=== PATIENT | female | born 1975 | race Caucasian/White ===

== ENCOUNTER 2018-12-28 19:13 | Observation (INO) | payer OTHER ==
[~2018-12-28] VITALS: Ht 160 cm; Wt 99.6 kg
[2018-12-28 20:38] VITALS: Ht 160 cm; Wt 99.6 kg
[2018-12-28 20:57] VITALS: BP 151/74; PULSE 77; RESP 18
[2018-12-28] MEDS ORDERED: DOCUSATE SODIUM 100 MG CAP PO PRN (21:30)
[2018-12-28] MEDS ORDERED: ONDANSETRON 4 MG TAB PO PRN (21:30)
[2018-12-28] MEDS ORDERED: NACL 0.9% 3 ML SYG IV SCH (21:30)
[2018-12-28] MEDS: CEFAZOLIN 1 GM/50 ML (PMX) 50 ML IVPB SCH (23:23)
[2018-12-28] MEDS: DEXTROSE 5%-0.45% NACL 1,000 ML IV SCH (23:23)
[2018-12-28] MEDS: FAMOTIDINE 20 MG TAB PO SCH (23:27)
[2018-12-28] MEDS: HEPARIN 5,000 UNIT/1 ML VIAL SC SCH (23:33)
[2018-12-29] VITALS (13 sets, daily range): BP systolic 126–161; BP diastolic 75–94; PULSE 87–99; RESP 15–24
[2018-12-29] MEDS: NICOTINE (14 MG/24 HR) PATCH TRANSDERM SCH ×2 (00:30→09:54)
[2018-12-29] MEDS: KETOROLAC 15 MG INJ IV PRN ×3 (05:04→20:31)
[2018-12-29] MEDS: CEFAZOLIN 1 GM/50 ML (PMX) 50 ML IVPB SCH (06:07)
[2018-12-29] MEDS: HEPARIN 5,000 UNIT/1 ML VIAL SC SCH (06:10)
[2018-12-29] MEDS: FAMOTIDINE 20 MG TAB PO SCH ×2 (09:52→20:31)
[2018-12-29] MEDS: DEXTROSE 5%-0.45% NACL 1,000 ML IV SCH ×2 (11:44→18:26)
--- NOTE | 2018-12-29 12:01 | PDOCDIS ---
Discharge Instructions CONDITION [id number] Patient Condition: [id number] Good HOME CARE INSTRUCTIONS: [id number] Diet Instructions: [id number] FOLLOW UP/APPOINTMENTS Follow-up Plan pcp [address] Carpenter 1 week SANDRA PÉREZ MD Dec 29, 2018 12:01
[2018-12-29] MEDS ORDERED: LIDOCAINE 1% (MPF) 30 ML INJ INJ ONE (12:30)
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
[2018-12-29] MEDS ORDERED: CEFAZOLIN 1 GM INJ IV ONE (13:30)
[2018-12-29] MEDS: CEFAZOLIN 2 GM/50 ML (PMX) 50 ML IVPB SCH ×2 (14:23→21:00)
--- NOTE | 2018-12-29 15:39 | PREAC ---
Date/Time of Note Date/Time of Note DATE: 12/29/18 TIME: 15:37 Anesthesia Eval and Record Evaluation Time Pre-Procedure Interview DATE: 12/29/18 TIME: 15:37 Age 43 Sex female NPO: 8 hrs Preoperative diagnosis left thumb open dislocation Planned procedure reduction and I&D Past Medical History Past Medical History: Includes Cardio: HTN Musculoskeletal: Other (chronic back pain disorder ) Psych: Anxiety Surgery & Anesthesia Issues No known issue Meds Anticoagulation: No Beta Ayde within 24 hr: No Reason Beta Ayde not given: Pt. not on B-Ayde No Active Prescriptions or Reported Meds Current Medications Dextrose/Sodium Chloride 1,000 ml @ 75 mls/hr [id number] IV Last administered on 12/28/18at 23:23; Admin Dose 75 MLS/HR; Start 12/28/18 at 21:15 IV Flush (NS 3 ml) 3 ml PER PROTOCOL IV ; Start 12/28/18 at 21:30 Ondansetron HCl (Zofran Tab) 4 mg Q6H PRN PO NAUSEA/VOMITING; Start 12/28/18 at 21:30 Acetaminophen (Tylenol Tab) 650 mg Q6H PRN PO .PAIN 1-3 OR TEMP; Start 12/28/18 at 21:30 Docusate Sodium (Colace) 100 mg Q12H PRN PO .CONSTIPATION; Start 12/28/18 at 21:30 Famotidine (Pepcid) 20 mg Q12 PO Last administered on 12/29/18at 09:52; Admin Dose 20 MG; Start 12/28/18 at 21:30 Ketorolac Tromethamine (Toradol) 15 mg Q6H PRN IV PAIN Last administered on 12/29/18at 13:37; Admin Dose 15 MG; Start 12/28/18 at 22:00; Stop 12/31/18 at 21:59 Nicotine (Nicoderm 14 Mg/ 24hr) 1 patch DAILY TRANSDERM Last administered on 12/29/18at 09:54; Admin Dose 1 PATCH; Start 12/29/18 at 00:30 Heparin Sodium (Porcine) (Heparin (5000 Units/1ml)) 5,000 unit BID SC ; Start 12/30/18 at 08:00 Cefazolin Sodium/ Dextrose 50 ml @ 100 mls/hr Q8 IVPB Last administered on 12/29/18at 14:23; Admin Dose 100 MLS/HR; Start 12/29/18 at 14:00 Meds reviewed: Yes Allergies Coded Allergies: No Known Allergy (Unverified , 12/28/18) DENIES ANY ALLERGY Allergies Reviewed: Yes Labs/Studies Labs Reviewed: Reviewed by anesthesiologist Result Diagram: 12/29/18 0438 12/29/18 0438 Laboratory Tests 12/29/18 04:38 test: Negative Pre-procedure Exam Last vitals Vital Signs Date Temp Pulse Resp B/P (MAP) Pulse Ox O2 O2 Flow FiO2 Time Delivery Rate 12/29/18 99.3 99 18 147/84 93 Room Air 03:22 (105) Airway: Adequate mouth opening, Adequate thyromental dist Mallampati: Mallampati III Teeth: Normal Lung: Normal Heart: Normal ASA Physical Status ASA physical status: 3 Emergency: None Pre-operative Attestations Prior to commencing anesthesia and surgery, the patient was re-evaluated, there was verification of: *The patient's identity *The results of appropriate recent lab work and preoperative vital signs *The above evaluation not changing prior to induction *Anesthetic plan, risk benefits, alternative and complications discussed with patient/family; questions answered; patient/family understands, accepts and wishes to proceed. CIRO KILGORE DO Dec 29, 2018 15:39
[2018-12-29] MEDS ORDERED: MIDAZOLAM 1 MG/ML 2 ML INJ ONE (15:57)
[2018-12-29] MEDS ORDERED: FENTAnyl 50 MCG/ML VIAL ONE (15:57)
[2018-12-29] MEDS ORDERED: ROPIVACAINE 0.5 % 30 ML VIAL ONE (15:57)
[2018-12-29] MEDS ORDERED: PROPOFOL 200 MG INJ ONE (15:57)
[2018-12-29] MEDS ORDERED: ONDANSETRON 4 MG INJ ONE (15:57)
[2018-12-29] MEDS ORDERED: LIDOCAINE 1% (MDV) 20 ML INJ ONE (15:57)
[2018-12-29] MEDS ORDERED: ETOMIDATE 20 MG INJ ONE (15:57)
[2018-12-29] MEDS ORDERED: ONDANSETRON 4 MG INJ IV PRN (16:00)
[2018-12-29] MEDS ORDERED: hydrALAzine 20 MG INJ IV PRN (16:00)
[2018-12-29] MEDS ORDERED: HYDROmorphONE 1 MG/5 ML IV SYRINGE IV PRN ×3 (16:00)
[2018-12-29] MEDS ORDERED: LABETALOL HCL 20MG INJ IV PRN (16:00)
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
[2018-12-30 00:05] VITALS: BP 121/76; PULSE 95; RESP 16
[2018-12-30] MEDS: ACETAMINOPHEN 325 MG TAB PO PRN ×3 (00:48→20:55)
[2018-12-30] MEDS: KETOROLAC 15 MG INJ IV PRN ×3 (02:48→16:41)
[2018-12-30] MEDS: CEFAZOLIN 2 GM/50 ML (PMX) 50 ML IVPB SCH ×3 (05:21→20:59)
[2018-12-30 07:50] VITALS: BP 128/72; PULSE 88; RESP 18
[2018-12-30] MEDS ORDERED: HEPARIN 5,000 UNIT/1 ML VIAL SC SCH (08:00)
[2018-12-30] MEDS: FAMOTIDINE 20 MG TAB PO SCH ×2 (08:29→20:56)
[2018-12-30] MEDS: NICOTINE (14 MG/24 HR) PATCH TRANSDERM SCH (08:31)
[2018-12-30] MEDS: HEPARIN 5,000 UNIT/1 ML VIAL SC SCH ×2 (08:38→20:58)
[2018-12-30] MEDS ORDERED: HYDR-4011 PO (09:12)
[2018-12-30] MEDS ORDERED: CEPH500C PO (09:12)
[2018-12-30] MEDS ORDERED: LACTULOSE 30ML CUP PO ONE (09:30)
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
--- NOTE | 2018-12-30 13:04 | PN ---
Date/Time of Note Date/Time of Note DATE: 12/30/18 TIME: 13:01 Assessment/Plan Lines/Catheters IV Catheter Type (from Nrsg): Peripheral IV Romero in Place (from Nrsg): No Assessment/Plan Assessment/Plan POD#1 s/p I&D and open reduction left thumb IP dislocation The hand is still significantly swollen. I recommend we observe her one more day. She will keep the hand elevated and move the fingers. Her dressing was re- wrapped. She will continue on IV Ancef q8h for the cellulitis. Subjective 24 Hr Interval Summary Complaining of pain in the left hand. Exam/Review of Systems Vital Signs Vitals Vital Signs Date Temp Pulse Resp B/P (MAP) Pulse Ox O2 O2 Flow FiO2 Time Delivery Rate 12/30/18 98.2 88 18 128/72 98 Room Air 07:50 (90) Intake and Output 12/29/18 12/29/18 12/30/18 1515:00 23:00 07:00 IntakeIntake Total 1330 ml 725 ml OutputOutput Total 5 ml BalanceBalance 1325 ml 725 ml Exam Free Text/Dictation Left hand is still significantly swollen. She is tender to palpation over the dorsal aspect of the hand where it is swollen along the 3rd and 4th MP joints. Compartments are soft. There is less erythema along the palmar aspect of the thumb. Sutures are in place. She can minimally flex and extend the IP joint. Sensation intact to light touch in all fingertips. Results Result Diagram: 12/29/18 0438 12/29/18 0438 WINNIE SKY MD Dec 30, 2018 13:04
[2018-12-30] MEDS: DEXTROSE 5%-0.45% NACL 1,000 ML IV SCH (14:18)
[2018-12-30 15:00] VITALS: BP 131/76; PULSE 82; RESP 19
[2018-12-30 19:45] VITALS: BP 150/87; PULSE 85; RESP 18
[2018-12-31 02:00] VITALS: BP 170/87; PULSE 86; RESP 18
[2018-12-31] MEDS: DEXTROSE 5%-0.45% NACL 1,000 ML IV SCH (02:35)
[2018-12-31] MEDS: CEFAZOLIN 2 GM/50 ML (PMX) 50 ML IVPB SCH ×2 (05:07→13:17)
[2018-12-31 07:21] VITALS: BP 141/84; PULSE 86; RESP 14
[2018-12-31] MEDS: FAMOTIDINE 20 MG TAB PO SCH (08:00)
[2018-12-31] MEDS: NICOTINE (14 MG/24 HR) PATCH TRANSDERM SCH (08:01)
[2018-12-31] MEDS: HEPARIN 5,000 UNIT/1 ML VIAL SC SCH (08:02)
[2018-12-31] MEDS: KETOROLAC 15 MG INJ IV PRN ×2 (08:07→13:17)
--- NOTE | 2018-12-31 09:58 | PN ---
Date/Time of Note Date/Time of Note DATE: 12/31/18 TIME: 09:58 Assessment/Plan VTE Prophylaxis Risk score (from Nsg)>0 risk: 4 SCD applied (from Nsg): Yes Pharmacological prophylaxis: heparin Lines/Catheters IV Catheter Type (from Nrsg): Peripheral IV Urinary Cath still in place: No Assessment/Plan Assessment/Plan 43 yo female with : 1. Left open thumb IP joint dislocation, status post ORIF and I&D, POD#2 Left hand seems to be much less swollen per patient report. Stable on exam. Patient already has prescription for Keflex and pain medication, appreciate recommendations from Dr. chávez, she is cleared to discharge today on Keflex for cellulitis. She has a pending x-ray prior to discharge today. She is to follow-up with Dr. Chávez in 1 week. No need for HHRN per Dr Marroquin and Dr Chávez 2. Hypertension: Per report on admission, posturing mostly normotensive and has not been taking any medications. Follow-up with primary care physician. 3. Homeless, patient is to go to her father's house. Prophylaxis: Heparin subcu for DVT prophylaxis. Disposition: Discharge home today to the patient's father's house with outpatient follow-up in 1 week with hand surgery, Dr. Chávez Result Diagram: 12/29/18 0438 12/29/18 0438 Subjective 24 Hr Interval Summary Free Text/Dictation Patient doing well Left hand less edematous on exam and per patient D/c plan today if OK with Dr Chávez Exam/Review of Systems Exam Vitals Vital Signs Date Temp Pulse Resp B/P (MAP) Pulse Ox O2 O2 Flow FiO2 Time Delivery Rate 12/31/18 98.2 86 14 141/84 100 Room Air 07:21 (103) Intake and Output 12/30/18 12/30/18 12/31/18 1515:00 23:00 07:00 IntakeIntake Total 1000 ml 760 ml 625 ml BalanceBalance 1000 ml 760 ml 625 ml Constitutional: alert, oriented, well developed Respiratory: clear to auscultation, normal air movement Cardiovascular: regular rate and rhythm, nl pulses Gastrointestinal: soft Extremities: normal pulses, other (much less left heand edema per report ) Neurological: [employer]ICE WORK[employer] II-XII intact, nl mental status, nl speech, nl strength Medications Medication Current Medications Dextrose/Sodium Chloride 1,000 ml @ 75 mls/hr [id number] IV Last administered on 12/30/18 14:18; Admin Dose 75 MLS/HR; Start 12/28/18 at 21:15 IV Flush (NS 3 ml) 3 ml PER PROTOCOL IV ; Start 12/28/18 at 21:30 Ondansetron HCl (Zofran Tab) 4 mg Q6H PRN PO NAUSEA/VOMITING; Start 12/28/18 at 21:30 Acetaminophen (Tylenol Tab) 650 mg Q6H PRN PO .PAIN 1-3 OR TEMP Last administe red on 12/30/18 20:55; Admin Dose 650 MG; Start 12/28/18 at 21:30 Docusate Sodium (Colace) 100 mg Q12H PRN PO .CONSTIPATION; Start 12/28/18 at 21:30 Famotidine (Pepcid) 20 mg Q12 PO Last administered on 12/31/18 08:00; Admin Dose 20 MG; Start 12/28/18 at 21:30 Ketorolac Tromethamine (Toradol) 15 mg Q6H PRN IV PAIN Last administered on 12/31/18 08:07; Admin Dose 15 MG; Start 12/28/18 at 22:00; Stop 12/31/18 at 21:59 Nicotine (Nicoderm 14 Mg/ 24hr) 1 patch DAILY TRANSDERM Last administered on 12/31/18 08:01; Admin Dose 1 PATCH; Start 12/29/18 at 00:30 Cefazolin Sodium/ Dextrose 50 ml @ 100 mls/hr Q8 IVPB Last administered on 12/31/18 05:07; Admin Dose 100 MLS/HR; Start 12/29/18 at 14:00 Heparin Sodium (Porcine) (Heparin (5000 Units/1ml)) 5,000 unit BID SC Last administered on 12/31/18 08:02; Admin Dose 5,000 UNIT; Start 12/30/18 at 08:00 JANICE MUELLER Dec 31, 2018 09:58
[2018-12-31] MEDS: ACETAMINOPHEN 325 MG TAB PO PRN ×2 (10:17→17:36)
--- NOTE | 2018-12-31 10:55 | PN ---
Date/Time of Note Date/Time of Note DATE: 12/31/18 TIME: 10:53 Assessment/Plan Lines/Catheters IV Catheter Type (from Nrsg): Peripheral IV Romero in Place (from Nrsg): No Assessment/Plan Assessment/Plan POD#2 s/p I&D, open reduction left thumb IP dislocation Will order left thumb xray prior to discharge to assess reduction. Discharge with PO antibiotics for cellulitis Keep dressing clean and dry. Follow-up in my office next week for wound check. Please have patient call my office. Subjective 24 Hr Interval Summary Pain is better Exam/Review of Systems Vital Signs Vitals Vital Signs Date Temp Pulse Resp B/P (MAP) Pulse Ox O2 O2 Flow FiO2 Time Delivery Rate 12/31/18 98.2 86 14 141/84 100 Room Air 07:21 (103) Intake and Output 12/30/18 12/30/18 12/31/18 1515:00 23:00 07:00 IntakeIntake Total 1000 ml 760 ml 625 ml BalanceBalance 1000 ml 760 ml 625 ml Exam Free Text/Dictation Swelling left hand is improved. The tip of the thumb is quite sensitive and tender. No obvious induration. She can flex and extend the IP joint. She can flex and extend the fingers. Less tenderness to palpation throughout the hand. Brisk capillary refill. Intact sensation in all fingertips. Results Result Diagram: 12/29/18 0438 12/29/18 0438 WINNIE SKY MD Dec 31, 2018 10:55
[2018-12-31 13:59] VITALS: BP 140/73; PULSE 81; RESP 14
== END 2018-12-31 18:45 | disposition home or self-care (01) ==
LOC: INTOOBSV 20:16 → MS1 20:16
PROVIDERS: ADMIT Internal Medicine; ATTEND Internal Medicine
DX: S62.502A Fracture of unspecified phalanx of left thumb, initial encounter for closed fracture (principal); V18.4XXA Pedal cycle driver injured in noncollision transport accident in traffic accident, initial encounter; Y93.55 Activity, bike riding; Y92.410 Unspecified street and highway as the place of occurrence of the external cause; I10 Essential (primary) hypertension; F41.9 Anxiety disorder, unspecified; Z59.0 Homelessness
CPT/HCPCS: 26746; 73130; 73140; 80048; 81003; 83036; 84443; 84703; 85025; 85610; 85730; J0690; J1170; J1644; J1885; J2250; J2405; J2795; J3010; J7042; Z7500; Z7512; Z7610; G0378